=== PATIENT | female | born 1950 | race Caucasian/White ===

== ENCOUNTER 2016-06-28 06:37 | Day surgery (SDC) | payer OTHER ==
--- NOTE | ~2016-06-28 | EGD ---
EGD REPORT [facility] [address] [address] NAME: JAIMIE GILMAN : [birth year] STATUS : REG [facility]#: [id number] AGE: 65 ADM/REG DATE : 06/28/16 MR#: [id number] REPORT SERV DATE: 06/28/16 DICTATED BY: DATE: REPORT STATUS : Draft TRANSCRIBED BY: [employer] DATE: 06/28/16 [facility] Patient Name: Jaimie Gilman Date of : 1950 Attending MD: BENOIT SHOEMAKER MD Procedure Date No Time: 06/28/2016 Procedure: Colonoscopy Indications: Hematochezia Referring MD: FIONA JEFF Medicines: Monitored Anesthesia Care Complications: No immediate complications. Procedure: Pre-Anesthesia Assessment: - ASA Grade Assessment: II - A patient with mild systemic disease. After I obtained informed consent, the scope was passed under direct vision. Throughout the procedure, the patient's blood pressure, pulse, and oxygen saturations were monitored continuously. The PCF [id number] was introduced through the anus and advanced to the cecum, identified by appendiceal orifice and ileocecal valve. The colonoscopy was performed without difficulty. The patient tolerated the procedure well. The quality of the bowel preparation was excellent. Findings: The perianal and digital rectal examinations were normal. A few small-mouthed diverticula were found in the sigmoid colon. A sessile polyp was found in the recto-sigmoid colon. The polyp was small in size. The polyp was removed with a cold snare. Resection and retrieval were complete. No other significant abnormalities were identified in a careful examination of the remainder of the colon. There is no endoscopic evidence of inflammation, mass or ulcerations in the entire colon. A small anal fissure was found in the anal canal. No additional abnormalities were found on retroflexion. Impression: - Diverticulosis in the sigmoid colon. - One small polyp at the recto-sigmoid colon. Resected and retrieved. - Anal fissure. Recommendation: - Patient has a contact number available for emergencies. The signs and symptoms of potential delayed complications were discussed with the patient. Return to EGD REPORT [address] [address] NAME: JAIMIE GILMAN : [birth year] STATUS : REG [facility] [place] PAT#: [id number] AGE: 65 ADM/REG DATE : 06/28/16 MR#: [id number] REPORT SERV DATE: 06/28/16 DICTATED BY: DATE: REPORT STATUS : Draft TRANSCRIBED BY: [employer] DATE: 06/28/16 normal activities tomorrow. Written discharge instructions were provided to the patient. - High fiber diet. - Discharge patient to home. - Continue present medications. - Await pathology results. - Repeat colonoscopy in 5 years for surveillance. Procedure Code(s): --- Professional --- 21136, Colonoscopy, flexible, proximal to splenic flexure; with removal of tumor(s), polyp(s), or other lesion(s) by snare technique Diagnosis Code(s): --- Professional --- K57.30, Diverticulosis of large intestine without perforation or abscess without bleeding D12.7, Benign neoplasm of rectosigmoid junction K60.2, Anal fissure, unspecified K92.1, [place] CPT copyright 2013 [employer]. All rights reserved. The codes documented in this report are preliminary and upon label coder review may be revised to meet current compliance requirements. BENOIT SHOEMAKER MD 06/28/2016 9:45 AM This report has been signed electronically. Number of Addenda: 0 Note Initiated On: 06/28/2016 9:01 AM Scope Withdrawal Time 0 hours 9 minutes 32 seconds [address] [place] [id number]
[~2016-06-28 06:37] MED LIST: PT TAKES NO MEDS; TIMOLOL MAL0.5 % OPH; VITAMIN D31000 UNIT PO; XALAT OPH
== END 2016-06-28 23:59 | disposition home or self-care (01) ==
LOC: DMU 06:37
PROVIDERS: Internal Medicine Gastroenterology
PROC: 0DBN8ZX Excision of Sigmoid Colon, Via Natural or Artificial Opening Endoscopic, Diagnostic (ICD-10-PCS; principal; 2016-06-28 09:30)
DX: D12.7 Benign neoplasm of rectosigmoid junction (principal); K57.30 Diverticulosis of large intestine without perforation or abscess without bleeding; K60.2 Anal fissure, unspecified; K92.1 Melena; E66.9 Obesity, unspecified; Z85.3 Personal history of malignant neoplasm of breast; Z88.0 Allergy status to penicillin; Z79.899 Other long term (current) drug therapy; Z98.41 Cataract extraction status, right eye; Z98.42 Cataract extraction status, left eye; Z90.49 Acquired absence of other specified parts of digestive tract; Z98.890 Other specified postprocedural states
CPT/HCPCS: 88305